=== PATIENT | female | born 1940 | race Caucasian/White ===

== ENCOUNTER → 2019-05-26 | Outpatient (CLI) | payer MEDICARE, OTHER ==
[2019-05-26 13:29] LABS: EOS # 0.1 (0.04-0.40); EOS % 0.8 % (1.0-5.0); HEMATOCRIT 42.7 % (37.0-47.0); HEMOGLOBIN 13.5 g/dL (12.5-16.0); LYMPH# 1.5 (1.50-4.00); MEAN CELL VOLUME 88 fl (78-100); MEAN CORPUSCULAR HEMOGLOBIN 28 pg (27-31); MEAN CORPUSCULAR HGB CONC 32 g/dL (33-37); MEAN PLATELET VOLUME 10.1 fl (7.4-10.4); PLATELET COUNT 405 K/mm3 (130-400); RED BLOOD COUNT 4.83 M/mm3 (4.10-5.30); RED CELL DISTRIBUTION WIDTH 13.7 % (11.5-14.5); WHITE BLOOD COUNT 9.6 K/mm3 (4.8-10.8)
[2019-05-26 13:39] LABS: ALBUMIN 3.8 g/dL (3.4-4.8)
[2019-05-26 13:40] LABS: POTASSIUM 4.2 mmol/L (3.5-5.1)
[2019-05-26 13:42] LABS: TOTAL PROTEIN 7.5 g/dL (6.2-8.1)
[2019-05-26 13:44] LABS: TOTAL BILIRUBIN 0.3 mg/dL (0.2-1.2)
== END ==
LOC: LAB 13:06 → RAD 13:06
PROVIDERS: Family Medicine
DX: J43.8 Other emphysema (principal); I71.2 Thoracic aortic aneurysm, without rupture; J90 Pleural effusion, not elsewhere classified; M47.814 Spondylosis without myelopathy or radiculopathy, thoracic region
CPT/HCPCS: Q9967

== ENCOUNTER 2019-05-30 11:53 | Emergency (ER) | payer MEDICARE, OTHER ==
[2019-05-30] MEDS ORDERED: FUROSEMIDE40 MG (12:04)
[2019-05-30 12:48] LABS: HEMATOCRIT 41.6 % (37.0-47.0); HEMOGLOBIN 13.4 g/dL (12.5-16.0); MEAN CELL VOLUME 87 fl (78-100); MEAN CORPUSCULAR HEMOGLOBIN 28 pg (27-31); MEAN CORPUSCULAR HGB CONC 32 g/dL (33-37); MEAN PLATELET VOLUME 10.4 fl (7.4-10.4); PLATELET COUNT 399 K/mm3 (130-400); RED CELL DISTRIBUTION WIDTH 13.6 % (11.5-14.5); WHITE BLOOD COUNT 8.6 K/mm3 (4.8-10.8)
[2019-05-30 13:02] LABS: LYMPHOCYTE 17 % (20-51); MONOCYTE 10 % (3-10); NEUTROPHILS 72 % (42-75)
[2019-05-30 13:03] LABS: ALBUMIN 3.8 g/dL (3.4-4.8)
[2019-05-30 13:04] LABS: POTASSIUM 4.6 mmol/L (3.5-5.1)
[2019-05-30 13:05] LABS: CALCIUM 8.8 mg/dL (8.3-10.5)
[2019-05-30 13:06] LABS: TOTAL PROTEIN 7.1 g/dL (6.2-8.1)
[2019-05-30 13:08] LABS: TOTAL BILIRUBIN 0.4 mg/dL (0.2-1.2)
[2019-05-30 14:20] LABS: PROTHROMBIN TIME 9.5 SECONDS (9.0-12.0)
[2019-05-30 15:03] VITALS: BP 129/74
== END 2019-05-30 14:53 | disposition short-term general hospital (02) ==
LOC: ED 11:53
PROVIDERS: Physician Assistant
DX: J90 Pleural effusion, not elsewhere classified (principal); I71.9 Aortic aneurysm of unspecified site, without rupture; R09.02 Hypoxemia; Z87.891 Personal history of nicotine dependence; Z88.2 Allergy status to sulfonamides
CPT/HCPCS: J1940

== ENCOUNTER → 2019-07-31 | Outpatient (CLI) | payer MEDICARE, OTHER ==
[~2019-07-31] MED LIST: FUROSEMIDE40 MG
[2019-07-31 11:45] LABS: CALCIUM 9.6 mg/dL (8.3-10.5)
== END ==
LOC: LAB 11:23 → RAD 11:23
PROVIDERS: Nurse Practitioner Family
DX: K59.00 Constipation, unspecified (principal); J90 Pleural effusion, not elsewhere classified; N13.30 Unspecified hydronephrosis; N28.89 Other specified disorders of kidney and ureter
CPT/HCPCS: Q9967

== ENCOUNTER → 2019-08-17 | Outpatient (CLI) | payer MEDICARE, OTHER ==
[2019-08-17 11:42] LABS: HEMATOCRIT 41.5 % (37.0-47.0); HEMOGLOBIN 13.5 g/dL (12.5-16.0); MEAN CELL VOLUME 87 fl (78-100); MEAN CORPUSCULAR HEMOGLOBIN 28 pg (27-31); MEAN CORPUSCULAR HGB CONC 33 g/dL (33-37); MEAN PLATELET VOLUME 10.8 fl (7.4-10.4); PLATELET COUNT 297 K/mm3 (130-400); RED CELL DISTRIBUTION WIDTH 14.6 % (11.5-14.5); WHITE BLOOD COUNT 14.7 K/mm3 (4.8-10.8)
[2019-08-17 12:08] LABS: LYMPHOCYTE 15 % (20-51); MONOCYTE 6 % (3-10); NEUTROPHILS 79 % (42-75)
== END ==
LOC: LAB 11:11
PROVIDERS: Internal Medicine Medical Oncology
DX: C57.8 Malignant neoplasm of overlapping sites of female genital organs (principal)

== ENCOUNTER → 2019-08-24 | Outpatient (CLI) | payer MEDICARE, OTHER ==
[2019-08-24 11:30] LABS: HEMATOCRIT 42.4 % (37.0-47.0); HEMOGLOBIN 13.6 g/dL (12.5-16.0); MEAN CELL VOLUME 87 fl (78-100); MEAN CORPUSCULAR HEMOGLOBIN 28 pg (27-31); MEAN CORPUSCULAR HGB CONC 32 g/dL (33-37); MEAN PLATELET VOLUME 10.3 fl (7.4-10.4); PLATELET COUNT 472 K/mm3 (130-400); RED BLOOD COUNT 4.86 M/mm3 (4.10-5.30); RED CELL DISTRIBUTION WIDTH 14.7 % (11.5-14.5); WHITE BLOOD COUNT 9.1 K/mm3 (4.8-10.8)
[2019-08-24 11:38] LABS: ALBUMIN 3.8 g/dL (3.4-4.8); POTASSIUM 4.2 mmol/L (3.5-5.1)
[2019-08-24 11:39] LABS: CALCIUM 8.8 mg/dL (8.3-10.5)
[2019-08-24 11:42] LABS: TOTAL BILIRUBIN 0.2 mg/dL (0.2-1.2)
[2019-08-24 12:30] LABS: LYMPHOCYTE 15 % (20-51); MONOCYTE 16 % (3-10); NEUTROPHILS 68 % (42-75)
== END ==
LOC: LAB 11:16
PROVIDERS: Internal Medicine Medical Oncology
DX: C57.8 Malignant neoplasm of overlapping sites of female genital organs (principal)

== ENCOUNTER → 2019-08-31 | Outpatient (CLI) | payer MEDICARE, OTHER ==
[2019-08-31 13:01] LABS: HEMATOCRIT 40.8 % (37.0-47.0); HEMOGLOBIN 12.9 g/dL (12.5-16.0); MEAN CELL VOLUME 89 fl (78-100); MEAN CORPUSCULAR HEMOGLOBIN 28 pg (27-31); MEAN CORPUSCULAR HGB CONC 32 g/dL (33-37); MEAN PLATELET VOLUME 11.6 fl (7.4-10.4); PLATELET COUNT 303 K/mm3 (130-400); RED BLOOD COUNT 4.61 M/mm3 (4.10-5.30); RED CELL DISTRIBUTION WIDTH 15.4 % (11.5-14.5)
[2019-08-31 13:48] LABS: WHITE BLOOD COUNT 26.9 K/mm3 (4.8-10.8)
[2019-08-31 13:54] LABS: LYMPHOCYTE 7 % (20-51); MONOCYTE 6 % (3-10); NEUTROPHILS 80 % (42-75)
[2019-08-31 13:55] LABS: BAND 3 % (0-10)
== END ==
LOC: LAB 11:53
PROVIDERS: Internal Medicine Medical Oncology
DX: C57.8 Malignant neoplasm of overlapping sites of female genital organs (principal)

== ENCOUNTER → 2019-09-07 | Outpatient (CLI) | payer MEDICARE, OTHER ==
[2019-09-07 11:15] LABS: EOS # 0.1 (0.04-0.40); EOS % 0.7 % (1.0-5.0); HEMATOCRIT 43.5 % (37.0-47.0); HEMOGLOBIN 13.6 g/dL (12.5-16.0); LYMPH# 1.6 (1.50-4.00); MEAN CELL VOLUME 88 fl (78-100); MEAN CORPUSCULAR HEMOGLOBIN 28 pg (27-31); MEAN CORPUSCULAR HGB CONC 31 g/dL (33-37); MEAN PLATELET VOLUME 10.7 fl (7.4-10.4); MONO # 1.2 (0.20-0.80); NEU # 8.5 (1.40-6.50); PLATELET COUNT 273 K/mm3 (130-400); RED BLOOD COUNT 4.92 M/mm3 (4.10-5.30); RED CELL DISTRIBUTION WIDTH 15.8 % (11.5-14.5); WHITE BLOOD COUNT 11.5 K/mm3 (4.8-10.8)
== END ==
LOC: LAB 11:02
PROVIDERS: Internal Medicine Medical Oncology
DX: C57.8 Malignant neoplasm of overlapping sites of female genital organs (principal)

== ENCOUNTER → 2019-09-14 | Outpatient (CLI) | payer MEDICARE, OTHER ==
[2019-09-14 11:54] LABS: HEMATOCRIT 40.9 % (37.0-47.0); HEMOGLOBIN 12.9 g/dL (12.5-16.0); MEAN CELL VOLUME 89 fl (78-100); MEAN CORPUSCULAR HEMOGLOBIN 28 pg (27-31); MEAN CORPUSCULAR HGB CONC 32 g/dL (33-37); MEAN PLATELET VOLUME 10.6 fl (7.4-10.4); PLATELET COUNT 332 K/mm3 (130-400); RED BLOOD COUNT 4.61 M/mm3 (4.10-5.30); RED CELL DISTRIBUTION WIDTH 15.8 % (11.5-14.5); WHITE BLOOD COUNT 7.6 K/mm3 (4.8-10.8)
[2019-09-14 12:06] LABS: ALBUMIN 3.7 g/dL (3.4-4.8); POTASSIUM 4.2 mmol/L (3.5-5.1)
[2019-09-14 12:07] LABS: CALCIUM 9.1 mg/dL (8.3-10.5)
[2019-09-14 12:08] LABS: TOTAL PROTEIN 7.2 g/dL (6.2-8.1)
[2019-09-14 12:10] LABS: TOTAL BILIRUBIN 0.5 mg/dL (0.2-1.2)
[2019-09-14 12:27] LABS: BAND 1 % (0-10); LYMPHOCYTE 18 % (20-51); MONOCYTE 12 % (3-10); NEUTROPHILS 68 % (42-75)
== END ==
LOC: LAB 11:29
PROVIDERS: Internal Medicine Medical Oncology
DX: C57.8 Malignant neoplasm of overlapping sites of female genital organs (principal)

== ENCOUNTER → 2019-09-21 | Outpatient (CLI) | payer MEDICARE, OTHER ==
[2019-09-21 13:48] LABS: HEMATOCRIT 39.5 % (37.0-47.0); HEMOGLOBIN 12.3 g/dL (12.5-16.0); MEAN CELL VOLUME 91 fl (78-100); MEAN CORPUSCULAR HEMOGLOBIN 28 pg (27-31); MEAN CORPUSCULAR HGB CONC 31 g/dL (33-37); MEAN PLATELET VOLUME 11.3 fl (7.4-10.4); PLATELET COUNT 240 K/mm3 (130-400); RED BLOOD COUNT 4.36 M/mm3 (4.10-5.30); RED CELL DISTRIBUTION WIDTH 16.6 % (11.5-14.5)
[2019-09-21 13:53] LABS: WHITE BLOOD COUNT 24.9 K/mm3 (4.8-10.8)
[2019-09-21 13:59] LABS: LYMPHOCYTE 9 % (20-51); MONOCYTE 8 % (3-10); NEUTROPHILS 83 % (42-75)
== END ==
LOC: LAB 13:32
PROVIDERS: Internal Medicine Medical Oncology
DX: C57.8 Malignant neoplasm of overlapping sites of female genital organs (principal)

== ENCOUNTER → 2019-09-28 | Outpatient (CLI) | payer MEDICARE, OTHER ==
[2019-09-28 15:48] LABS: EOS # 0.1 (0.04-0.40); EOS % 0.4 % (1.0-5.0); HEMATOCRIT 40.7 % (37.0-47.0); HEMOGLOBIN 12.8 g/dL (12.5-16.0); LYMPH# 1.8 (1.50-4.00); MEAN CELL VOLUME 90 fl (78-100); MEAN CORPUSCULAR HEMOGLOBIN 28 pg (27-31); MEAN CORPUSCULAR HGB CONC 31 g/dL (33-37); MEAN PLATELET VOLUME 10.6 fl (7.4-10.4); MONO # 1.1 (0.20-0.80); PLATELET COUNT 258 K/mm3 (130-400); RED BLOOD COUNT 4.51 M/mm3 (4.10-5.30); RED CELL DISTRIBUTION WIDTH 16.7 % (11.5-14.5); WHITE BLOOD COUNT 14.2 K/mm3 (4.8-10.8)
[2019-09-28 16:29] LABS: NEU # 11.2 (1.40-6.50)
== END ==
LOC: LAB 15:35
PROVIDERS: Internal Medicine Medical Oncology
DX: C57.8 Malignant neoplasm of overlapping sites of female genital organs (principal)

== ENCOUNTER → 2019-09-30 | Outpatient (CLI) | payer MEDICARE, OTHER | LOC: RAD 08:15 | DX: C57.8 Malignant neoplasm of overlapping sites of female genital organs (principal) | CPT/HCPCS: Q9967 ==

== ENCOUNTER → 2019-10-19 | Outpatient (CLI) | payer MEDICARE, OTHER ==
[2019-10-19 09:41] LABS: EOS # 0.1 (0.04-0.40); EOS % 1.5 % (1.0-5.0); HEMATOCRIT 42.3 % (37.0-47.0); HEMOGLOBIN 13.3 g/dL (12.5-16.0); LYMPH# 1.5 (1.50-4.00); MEAN CELL VOLUME 93 fl (78-100); MEAN CORPUSCULAR HEMOGLOBIN 29 pg (27-31); MEAN CORPUSCULAR HGB CONC 31 g/dL (33-37); MEAN PLATELET VOLUME 10.7 fl (7.4-10.4); MONO # 0.7 (0.20-0.80); NEU # 6.5 (1.40-6.50); PLATELET COUNT 235 K/mm3 (130-400); RED BLOOD COUNT 4.53 M/mm3 (4.10-5.30); WHITE BLOOD COUNT 8.9 K/mm3 (4.8-10.8)
[2019-10-19 09:54] LABS: RED CELL DISTRIBUTION WIDTH 18.2 % (11.5-14.5)
[2019-10-19 10:01] LABS: ALBUMIN 3.8 g/dL (3.4-4.8)
[2019-10-19 10:02] LABS: CALCIUM 9.1 mg/dL (8.3-10.5)
[2019-10-19 10:03] LABS: TOTAL PROTEIN 7.3 g/dL (6.2-8.1)
[2019-10-19 10:05] LABS: TOTAL BILIRUBIN 0.3 mg/dL (0.2-1.2)
== END ==
LOC: LAB 09:21
PROVIDERS: Internal Medicine Medical Oncology
DX: C57.8 Malignant neoplasm of overlapping sites of female genital organs (principal)

== ENCOUNTER → 2019-10-26 | Outpatient (CLI) | payer MEDICARE, OTHER ==
[2019-10-26 10:42] LABS: ALBUMIN 3.7 g/dL (3.4-4.8); POTASSIUM 3.7 mmol/L (3.5-5.1)
[2019-10-26 10:43] LABS: CALCIUM 8.8 mg/dL (8.3-10.5)
[2019-10-26 10:44] LABS: TOTAL PROTEIN 7.1 g/dL (6.2-8.1)
[2019-10-26 10:46] LABS: TOTAL BILIRUBIN 0.5 mg/dL (0.2-1.2)
[2019-10-26 10:55] LABS: HEMATOCRIT 41.9 % (37.0-47.0); MEAN CELL VOLUME 95 fl (78-100); MEAN CORPUSCULAR HEMOGLOBIN 29 pg (27-31); MEAN CORPUSCULAR HGB CONC 31 g/dL (33-37); PLATELET COUNT 271 K/mm3 (130-400); RED BLOOD COUNT 4.42 M/mm3 (4.10-5.30); RED CELL DISTRIBUTION WIDTH 17.6 % (11.5-14.5); WHITE BLOOD COUNT 5.9 K/mm3 (4.8-10.8)
[2019-10-26 11:50] LABS: LYMPHOCYTE 19 % (20-51); MONOCYTE 10 % (3-10); NEUTROPHILS 69 % (42-75)
== END ==
LOC: LAB 09:42
PROVIDERS: Internal Medicine Medical Oncology
DX: C57.8 Malignant neoplasm of overlapping sites of female genital organs (principal)

== ENCOUNTER → 2019-11-02 | Outpatient (CLI) | payer MEDICARE, OTHER ==
[2019-11-02 13:51] LABS: HEMATOCRIT 38.3 % (37.0-47.0); HEMOGLOBIN 12.2 g/dL (12.5-16.0); MEAN CELL VOLUME 95 fl (78-100); MEAN CORPUSCULAR HEMOGLOBIN 30 pg (27-31); MEAN CORPUSCULAR HGB CONC 32 g/dL (33-37); MEAN PLATELET VOLUME 11.3 fl (7.4-10.4); PLATELET COUNT 189 K/mm3 (130-400); RED BLOOD COUNT 4.02 M/mm3 (4.10-5.30); RED CELL DISTRIBUTION WIDTH 17.4 % (11.5-14.5)
[2019-11-02 14:30] LABS: WHITE BLOOD COUNT 21.7 K/mm3 (4.8-10.8)
[2019-11-02 14:31] LABS: BAND 5 % (0-10); LYMPHOCYTE 8 % (20-51); MICROCYTOSIS 1+; MONOCYTE 3 % (3-10); NEUTROPHILS 83 % (42-75)
== END ==
LOC: LAB 13:24
PROVIDERS: Internal Medicine Medical Oncology
DX: C57.8 Malignant neoplasm of overlapping sites of female genital organs (principal)

== ENCOUNTER → 2019-11-09 | Outpatient (CLI) | payer MEDICARE, OTHER ==
[2019-11-09 15:34] LABS: HEMATOCRIT 40.9 % (37.0-47.0); HEMOGLOBIN 12.9 g/dL (12.5-16.0); MEAN CELL VOLUME 95 fl (78-100); MEAN CORPUSCULAR HEMOGLOBIN 30 pg (27-31); MEAN CORPUSCULAR HGB CONC 32 g/dL (33-37); MEAN PLATELET VOLUME 10.9 fl (7.4-10.4); PLATELET COUNT 233 K/mm3 (130-400); RED BLOOD COUNT 4.31 M/mm3 (4.10-5.30); RED CELL DISTRIBUTION WIDTH 16.8 % (11.5-14.5); WHITE BLOOD COUNT 13.8 K/mm3 (4.8-10.8)
[2019-11-09 16:02] LABS: LYMPHOCYTE 12 % (20-51); MONOCYTE 5 % (3-10); NEUTROPHILS 81 % (42-75)
== END ==
LOC: LAB 15:04
PROVIDERS: Internal Medicine Medical Oncology
DX: C57.8 Malignant neoplasm of overlapping sites of female genital organs (principal)

== ENCOUNTER → 2019-11-16 | Outpatient (CLI) | payer MEDICARE, OTHER ==
[2019-11-16 15:37] LABS: HEMATOCRIT 39.5 % (37.0-47.0); HEMOGLOBIN 12.4 g/dL (12.5-16.0); MEAN CELL VOLUME 96 fl (78-100); MEAN CORPUSCULAR HEMOGLOBIN 30 pg (27-31); MEAN CORPUSCULAR HGB CONC 31 g/dL (33-37); MEAN PLATELET VOLUME 11.4 fl (7.4-10.4); PLATELET COUNT 305 K/mm3 (130-400); RED BLOOD COUNT 4.11 M/mm3 (4.10-5.30); WHITE BLOOD COUNT 7.3 K/mm3 (4.8-10.8)
[2019-11-16 15:40] LABS: ALBUMIN 3.8 g/dL (3.4-4.8); POTASSIUM 3.9 mmol/L (3.5-5.1)
[2019-11-16 15:41] LABS: CALCIUM 8.7 mg/dL (8.3-10.5)
[2019-11-16 15:42] LABS: TOTAL PROTEIN 7.2 g/dL (6.2-8.1)
[2019-11-16 15:44] LABS: TOTAL BILIRUBIN 0.3 mg/dL (0.2-1.2)
[2019-11-16 16:05] LABS: LYMPHOCYTE 24 % (20-51); MONOCYTE 12 % (3-10); NEUTROPHILS 62 % (42-75)
== END ==
LOC: LAB 14:06
PROVIDERS: Internal Medicine Medical Oncology
DX: C57.8 Malignant neoplasm of overlapping sites of female genital organs (principal)

== ENCOUNTER → 2019-12-01 | Outpatient (CLI) | payer MEDICARE, OTHER ==
[2019-12-01 09:22] LABS: EOS # 0.1 (0.04-0.40); EOS % 1.1 % (1.0-5.0); HEMATOCRIT 42.7 % (37.0-47.0); HEMOGLOBIN 13.6 g/dL (12.5-16.0); LYMPH# 1.5 (1.50-4.00); MEAN CELL VOLUME 96 fl (78-100); MEAN CORPUSCULAR HEMOGLOBIN 31 pg (27-31); MEAN CORPUSCULAR HGB CONC 32 g/dL (33-37); MEAN PLATELET VOLUME 10.5 fl (7.4-10.4); MONO # 0.8 (0.20-0.80); NEU # 8.1 (1.40-6.50); PLATELET COUNT 231 K/mm3 (130-400); RED BLOOD COUNT 4.43 M/mm3 (4.10-5.30); RED CELL DISTRIBUTION WIDTH 15.9 % (11.5-14.5); WHITE BLOOD COUNT 10.5 K/mm3 (4.8-10.8)
[2019-12-01 09:44] LABS: ALBUMIN 3.9 g/dL (3.4-4.8); POTASSIUM 4.2 mmol/L (3.5-5.1)
[2019-12-01 09:46] LABS: CALCIUM 8.9 mg/dL (8.3-10.5)
[2019-12-01 09:47] LABS: TOTAL PROTEIN 7.3 g/dL (6.2-8.1)
[2019-12-01 09:49] LABS: TOTAL BILIRUBIN 0.3 mg/dL (0.2-1.2)
== END ==
LOC: RAD 09:00
PROVIDERS: Internal Medicine
DX: C57.8 Malignant neoplasm of overlapping sites of female genital organs (principal); J43.9 Emphysema, unspecified; K76.89 Other specified diseases of liver
CPT/HCPCS: Q9967

== ENCOUNTER → 2019-12-25 | Outpatient (CLI) | payer MEDICARE, OTHER ==
[2019-12-25 11:05] LABS: HEMATOCRIT 41.9 % (37.0-47.0); HEMOGLOBIN 13.2 g/dL (12.5-16.0); MEAN CELL VOLUME 98 fl (78-100); MEAN CORPUSCULAR HEMOGLOBIN 31 pg (27-31); MEAN CORPUSCULAR HGB CONC 32 g/dL (33-37); MEAN PLATELET VOLUME 10.9 fl (7.4-10.4); PLATELET COUNT 207 K/mm3 (130-400); RED BLOOD COUNT 4.28 M/mm3 (4.10-5.30); RED CELL DISTRIBUTION WIDTH 14.6 % (11.5-14.5); WHITE BLOOD COUNT 14.1 K/mm3 (4.8-10.8)
[2019-12-25 11:32] LABS: ALBUMIN 3.9 g/dL (3.4-4.8)
[2019-12-25 11:33] LABS: POTASSIUM 4.2 mmol/L (3.5-5.1)
[2019-12-25 11:34] LABS: CALCIUM 9.2 mg/dL (8.3-10.5)
[2019-12-25 11:35] LABS: TOTAL PROTEIN 7.3 g/dL (6.2-8.1)
[2019-12-25 11:37] LABS: TOTAL BILIRUBIN 0.2 mg/dL (0.2-1.2)
[2019-12-25 11:46] LABS: LYMPHOCYTE 17 % (20-51); MONOCYTE 10 % (3-10); NEUTROPHILS 73 % (42-75)
== END ==
LOC: LAB 10:48
PROVIDERS: Internal Medicine Medical Oncology
DX: C57.8 Malignant neoplasm of overlapping sites of female genital organs (principal)

== ENCOUNTER → 2020-01-01 | Outpatient (CLI) | payer MEDICARE, OTHER ==
[2020-01-01 13:43] LABS: HEMATOCRIT 41.1 % (37.0-47.0); MEAN CELL VOLUME 97 fl (78-100); MEAN CORPUSCULAR HEMOGLOBIN 31 pg (27-31); MEAN CORPUSCULAR HGB CONC 32 g/dL (33-37); MEAN PLATELET VOLUME 10.5 fl (7.4-10.4); PLATELET COUNT 250 K/mm3 (130-400); RED BLOOD COUNT 4.23 M/mm3 (4.10-5.30); WHITE BLOOD COUNT 8.7 K/mm3 (4.8-10.8)
[2020-01-01 13:52] LABS: ALBUMIN 3.9 g/dL (3.4-4.8)
[2020-01-01 13:53] LABS: POTASSIUM 4.4 mmol/L (3.5-5.1)
[2020-01-01 13:54] LABS: CALCIUM 9.1 mg/dL (8.3-10.5)
[2020-01-01 13:55] LABS: TOTAL PROTEIN 7.4 g/dL (6.2-8.1)
[2020-01-01 13:57] LABS: TOTAL BILIRUBIN 0.3 mg/dL (0.2-1.2)
[2020-01-01 14:21] LABS: LYMPHOCYTE 26 % (20-51); MONOCYTE 5 % (3-10); NEUTROPHILS 66 % (42-75)
== END ==
LOC: LAB 13:29
PROVIDERS: Internal Medicine Medical Oncology
DX: C57.8 Malignant neoplasm of overlapping sites of female genital organs (principal)

== ENCOUNTER → 2020-01-20 | Outpatient (CLI) | payer MEDICARE, OTHER ==
[2020-01-20 10:41] LABS: EOS # 0.1 (0.04-0.40); EOS % 0.6 % (1.0-5.0); HEMATOCRIT 43.8 % (37.0-47.0); HEMOGLOBIN 13.8 g/dL (12.5-16.0); LYMPH# 1.5 (1.50-4.00); MEAN CELL VOLUME 97 fl (78-100); MEAN CORPUSCULAR HEMOGLOBIN 31 pg (27-31); MEAN CORPUSCULAR HGB CONC 32 g/dL (33-37); MEAN PLATELET VOLUME 10.7 fl (7.4-10.4); MONO # 1.1 (0.20-0.80); NEU # 8.3 (1.40-6.50); PLATELET COUNT 240 K/mm3 (130-400); RED BLOOD COUNT 4.53 M/mm3 (4.10-5.30); RED CELL DISTRIBUTION WIDTH 14.8 % (11.5-14.5); WHITE BLOOD COUNT 10.9 K/mm3 (4.8-10.8)
[2020-01-20 10:49] LABS: ALBUMIN 3.9 g/dL (3.4-4.8); POTASSIUM 4.1 mmol/L (3.5-5.1)
[2020-01-20 10:52] LABS: TOTAL PROTEIN 7.8 g/dL (6.2-8.1)
[2020-01-20 10:53] LABS: TOTAL BILIRUBIN 0.5 mg/dL (0.2-1.2)
== END ==
LOC: LAB 10:17
PROVIDERS: Internal Medicine Medical Oncology
DX: C57.8 Malignant neoplasm of overlapping sites of female genital organs (principal)

== ENCOUNTER → 2020-01-27 | Outpatient (CLI) | payer MEDICARE, OTHER ==
[2020-01-27 10:11] LABS: HEMATOCRIT 42.5 % (37.0-47.0); HEMOGLOBIN 13.4 g/dL (12.5-16.0); MEAN CELL VOLUME 97 fl (78-100); MEAN CORPUSCULAR HEMOGLOBIN 31 pg (27-31); MEAN CORPUSCULAR HGB CONC 32 g/dL (33-37); MEAN PLATELET VOLUME 10.6 fl (7.4-10.4); PLATELET COUNT 309 K/mm3 (130-400); RED BLOOD COUNT 4.38 M/mm3 (4.10-5.30); RED CELL DISTRIBUTION WIDTH 14.5 % (11.5-14.5); WHITE BLOOD COUNT 6.6 K/mm3 (4.8-10.8)
[2020-01-27 11:58] LABS: LYMPHOCYTE 24 % (20-51); MONOCYTE 13 % (3-10); NEUTROPHILS 62 % (42-75)
== END ==
LOC: LAB 09:39
PROVIDERS: Internal Medicine Medical Oncology
DX: C57.8 Malignant neoplasm of overlapping sites of female genital organs (principal)

== ENCOUNTER → 2020-02-12 | Outpatient (CLI) | payer MEDICARE, OTHER ==
[2020-02-12 11:16] LABS: HEMOGLOBIN 13.5 g/dL (12.5-16.0); MEAN CELL VOLUME 96 fl (78-100); MEAN CORPUSCULAR HEMOGLOBIN 30 pg (27-31); MEAN CORPUSCULAR HGB CONC 31 g/dL (33-37); MEAN PLATELET VOLUME 10.4 fl (7.4-10.4); PLATELET COUNT 259 K/mm3 (130-400); RED BLOOD COUNT 4.46 M/mm3 (4.10-5.30); RED CELL DISTRIBUTION WIDTH 14.2 % (11.5-14.5); WHITE BLOOD COUNT 5.9 K/mm3 (4.8-10.8)
[2020-02-12 11:29] LABS: ALBUMIN 3.9 g/dL (3.4-4.8)
[2020-02-12 11:30] LABS: POTASSIUM 4.2 mmol/L (3.5-5.1)
[2020-02-12 11:31] LABS: CALCIUM 8.9 mg/dL (8.3-10.5)
[2020-02-12 11:32] LABS: TOTAL PROTEIN 7.6 g/dL (6.2-8.1)
[2020-02-12 11:34] LABS: TOTAL BILIRUBIN 0.5 mg/dL (0.2-1.2)
[2020-02-12 12:08] LABS: LYMPHOCYTE 23 % (20-51); MONOCYTE 12 % (3-10); NEUTROPHILS 63 % (42-75)
== END ==
LOC: LAB 11:01
PROVIDERS: Internal Medicine Medical Oncology
DX: C57.8 Malignant neoplasm of overlapping sites of female genital organs (principal)

== ENCOUNTER → 2020-02-18 | Outpatient (CLI) | payer MEDICARE, OTHER ==
[2020-02-18 14:37] LABS: EOS # 0.3 (0.04-0.40); EOS % 4.3 % (1.0-5.0); HEMATOCRIT 42.5 % (37.0-47.0); HEMOGLOBIN 13.7 g/dL (12.5-16.0); LYMPH# 1.7 (1.50-4.00); MEAN CELL VOLUME 96 fl (78-100); MEAN CORPUSCULAR HEMOGLOBIN 31 pg (27-31); MEAN CORPUSCULAR HGB CONC 32 g/dL (33-37); MEAN PLATELET VOLUME 10.8 fl (7.4-10.4); MONO # 0.9 (0.20-0.80); NEU # 4.3 (1.40-6.50); PLATELET COUNT 237 K/mm3 (130-400); RED BLOOD COUNT 4.41 M/mm3 (4.10-5.30); RED CELL DISTRIBUTION WIDTH 13.9 % (11.5-14.5); WHITE BLOOD COUNT 7.3 K/mm3 (4.8-10.8)
== END ==
LOC: LAB 14:06
PROVIDERS: Internal Medicine Medical Oncology
DX: C57.8 Malignant neoplasm of overlapping sites of female genital organs (principal)

== ENCOUNTER → 2020-03-09 | Outpatient (CLI) | payer MEDICARE, OTHER ==
[2020-03-09 11:18] LABS: HEMATOCRIT 45.4 % (37.0-47.0); HEMOGLOBIN 14.5 g/dL (12.5-16.0); MEAN CELL VOLUME 94 fl (78-100); MEAN CORPUSCULAR HEMOGLOBIN 30 pg (27-31); MEAN CORPUSCULAR HGB CONC 32 g/dL (33-37); MEAN PLATELET VOLUME 10.2 fl (7.4-10.4); PLATELET COUNT 272 K/mm3 (130-400); RED BLOOD COUNT 4.81 M/mm3 (4.10-5.30); RED CELL DISTRIBUTION WIDTH 13.7 % (11.5-14.5)
[2020-03-09 11:35] LABS: POTASSIUM 4.2 mmol/L (3.5-5.1)
[2020-03-09 11:36] LABS: CALCIUM 9.2 mg/dL (8.3-10.5)
[2020-03-09 11:38] LABS: TOTAL PROTEIN 7.7 g/dL (6.2-8.1)
[2020-03-09 11:39] LABS: TOTAL BILIRUBIN 0.5 mg/dL (0.2-1.2)
[2020-03-09 11:54] LABS: LYMPHOCYTE 27 % (20-51); MONOCYTE 14 % (3-10); NEUTROPHILS 55 % (42-75)
== END ==
LOC: LAB 11:02
PROVIDERS: Internal Medicine Medical Oncology
DX: C57.8 Malignant neoplasm of overlapping sites of female genital organs (principal)

== ENCOUNTER → 2020-03-30 | Outpatient (CLI) | payer MEDICARE, OTHER ==
[2020-03-30 14:03] LABS: HEMATOCRIT 46.2 % (37.0-47.0); HEMOGLOBIN 14.8 g/dL (12.5-16.0); MEAN CELL VOLUME 94 fl (78-100); MEAN CORPUSCULAR HEMOGLOBIN 30 pg (27-31); MEAN CORPUSCULAR HGB CONC 32 g/dL (33-37); MEAN PLATELET VOLUME 10.9 fl (7.4-10.4); PLATELET COUNT 222 K/mm3 (130-400); RED BLOOD COUNT 4.94 M/mm3 (4.10-5.30); RED CELL DISTRIBUTION WIDTH 13.5 % (11.5-14.5); WHITE BLOOD COUNT 6.2 K/mm3 (4.8-10.8)
[2020-03-30 14:04] LABS: LYMPHOCYTE 28 % (20-51); MONOCYTE 11 % (3-10); NEUTROPHILS 55 % (42-75)
[2020-03-30 14:05] LABS: ALBUMIN 3.9 g/dL (3.4-4.8); CALCIUM 9.2 mg/dL (8.3-10.5); POTASSIUM 4.4 mmol/L (3.5-5.1); TOTAL BILIRUBIN 0.3 mg/dL (0.2-1.2); TOTAL PROTEIN 7.5 g/dL (6.2-8.1)
== END ==
LOC: LAB 13:30
PROVIDERS: Internal Medicine Medical Oncology
DX: C57.8 Malignant neoplasm of overlapping sites of female genital organs (principal)

== ENCOUNTER → 2020-04-20 | Outpatient (CLI) | payer MEDICARE, OTHER ==
[2020-04-20 11:33] LABS: BASO # 0.1 (0.02-0.10); EOS # 0.2 (0.04-0.40); EOS % 2.3 % (1.0-5.0); HEMATOCRIT 45.5 % (37.0-47.0); HEMOGLOBIN 14.4 g/dL (12.5-16.0); LYMPH# 1.9 (1.50-4.00); MEAN CELL VOLUME 94 fl (78-100); MEAN CORPUSCULAR HEMOGLOBIN 30 pg (27-31); MEAN CORPUSCULAR HGB CONC 32 g/dL (33-37); MEAN PLATELET VOLUME 10.8 fl (7.4-10.4); MONO # 0.8 (0.20-0.80); NEU # 4.5 (1.40-6.50); PLATELET COUNT 227 K/mm3 (130-400); RED BLOOD COUNT 4.86 M/mm3 (4.10-5.30); RED CELL DISTRIBUTION WIDTH 13.7 % (11.5-14.5); WHITE BLOOD COUNT 7.5 K/mm3 (4.8-10.8)
[2020-04-20 11:40] LABS: ALBUMIN 3.8 g/dL (3.4-4.8)
[2020-04-20 11:41] LABS: POTASSIUM 4.2 mmol/L (3.5-5.1)
[2020-04-20 11:43] LABS: TOTAL PROTEIN 7.2 g/dL (6.2-8.1)
[2020-04-20 11:45] LABS: TOTAL BILIRUBIN 0.3 mg/dL (0.2-1.2)
== END ==
LOC: LAB 11:10
PROVIDERS: Internal Medicine Medical Oncology
DX: C57.8 Malignant neoplasm of overlapping sites of female genital organs (principal)

== ENCOUNTER → 2020-05-11 | Outpatient (CLI) | payer MEDICARE, OTHER ==
[2020-05-11 11:51] LABS: HEMATOCRIT 48.9 % (37.0-47.0); HEMOGLOBIN 15.5 g/dL (12.5-16.0); MEAN CELL VOLUME 94 fl (78-100); MEAN CORPUSCULAR HEMOGLOBIN 30 pg (27-31); MEAN CORPUSCULAR HGB CONC 32 g/dL (33-37); MEAN PLATELET VOLUME 10.7 fl (7.4-10.4); PLATELET COUNT 212 K/mm3 (130-400); RED BLOOD COUNT 5.23 M/mm3 (4.10-5.30); WHITE BLOOD COUNT 5.9 K/mm3 (4.8-10.8)
[2020-05-11 12:06] LABS: POTASSIUM 4.2 mmol/L (3.5-5.1)
[2020-05-11 12:07] LABS: CALCIUM 9.3 mg/dL (8.3-10.5)
[2020-05-11 12:08] LABS: TOTAL PROTEIN 7.9 g/dL (6.2-8.1)
[2020-05-11 12:10] LABS: TOTAL BILIRUBIN 0.5 mg/dL (0.2-1.2)
[2020-05-11 12:17] LABS: LYMPHOCYTE 34 % (20-51); MONOCYTE 14 % (3-10); NEUTROPHILS 50 % (42-75)
== END ==
LOC: LAB 11:28
PROVIDERS: Internal Medicine Medical Oncology
DX: C57.8 Malignant neoplasm of overlapping sites of female genital organs (principal)

== ENCOUNTER → 2020-06-01 | Outpatient (CLI) | payer MEDICARE, OTHER ==
[2020-06-01 11:24] LABS: ALBUMIN 3.8 g/dL (3.4-4.8); POTASSIUM 4.3 mmol/L (3.5-5.1)
[2020-06-01 11:26] LABS: TOTAL PROTEIN 7.4 g/dL (6.2-8.1)
[2020-06-01 11:28] LABS: TOTAL BILIRUBIN 0.4 mg/dL (0.2-1.2)
[2020-06-01 11:38] LABS: EOS # 0.2 (0.04-0.40); HEMATOCRIT 45.4 % (37.0-47.0); HEMOGLOBIN 14.5 g/dL (12.5-16.0); LYMPH# 1.5 (1.50-4.00); MEAN CELL VOLUME 91 fl (78-100); MEAN CORPUSCULAR HEMOGLOBIN 29 pg (27-31); MEAN CORPUSCULAR HGB CONC 32 g/dL (33-37); MEAN PLATELET VOLUME 11.3 fl (7.4-10.4); MONO # 0.6 (0.20-0.80); NEU # 3.4 (1.40-6.50); PLATELET COUNT 251 K/mm3 (130-400); RED BLOOD COUNT 4.97 M/mm3 (4.10-5.30); WHITE BLOOD COUNT 5.7 K/mm3 (4.8-10.8)
== END ==
LOC: LAB 10:38
PROVIDERS: Internal Medicine Medical Oncology
DX: C57.8 Malignant neoplasm of overlapping sites of female genital organs (principal)

== ENCOUNTER → 2020-06-22 | Outpatient (CLI) | payer MEDICARE, OTHER ==
[2020-06-22 11:29] LABS: HEMOGLOBIN 14.8 g/dL (12.5-16.0); MEAN CELL VOLUME 93 fl (78-100); MEAN CORPUSCULAR HEMOGLOBIN 29 pg (27-31); MEAN CORPUSCULAR HGB CONC 32 g/dL (33-37); MEAN PLATELET VOLUME 10.8 fl (7.4-10.4); PLATELET COUNT 223 K/mm3 (130-400); RED BLOOD COUNT 5.05 M/mm3 (4.10-5.30); RED CELL DISTRIBUTION WIDTH 14.6 % (11.5-14.5); WHITE BLOOD COUNT 5.6 K/mm3 (4.8-10.8)
[2020-06-22 11:33] LABS: ALBUMIN 3.9 g/dL (3.4-4.8)
[2020-06-22 11:34] LABS: CALCIUM 9.2 mg/dL (8.3-10.5)
[2020-06-22 11:36] LABS: TOTAL PROTEIN 7.4 g/dL (6.2-8.1)
[2020-06-22 11:37] LABS: TOTAL BILIRUBIN 0.4 mg/dL (0.2-1.2)
[2020-06-22 11:39] LABS: LYMPHOCYTE 26 % (20-51); MONOCYTE 13 % (3-10); NEUTROPHILS 57 % (42-75)
== END ==
LOC: LAB 11:05
PROVIDERS: Internal Medicine Medical Oncology
DX: C57.8 Malignant neoplasm of overlapping sites of female genital organs (principal)

== ENCOUNTER → 2020-07-19 | Outpatient (CLI) | payer MEDICARE, OTHER ==
[2020-07-19 15:39] LABS: BASO # 0.1 (0.02-0.10); EOS # 0.2 (0.04-0.40); EOS % 2.3 % (1.0-5.0); HEMATOCRIT 46.6 % (37.0-47.0); HEMOGLOBIN 14.7 g/dL (12.5-16.0); LYMPH# 2.3 (1.50-4.00); MEAN CELL VOLUME 95 fl (78-100); MEAN CORPUSCULAR HEMOGLOBIN 30 pg (27-31); MEAN CORPUSCULAR HGB CONC 32 g/dL (33-37); MEAN PLATELET VOLUME 10.8 fl (7.4-10.4); MONO # 0.9 (0.20-0.80); NEU # 3.9 (1.40-6.50); PLATELET COUNT 248 K/mm3 (130-400); RED BLOOD COUNT 4.89 M/mm3 (4.10-5.30); RED CELL DISTRIBUTION WIDTH 14.7 % (11.5-14.5); WHITE BLOOD COUNT 7.3 K/mm3 (4.8-10.8)
[2020-07-19 15:48] LABS: POTASSIUM 4.4 mmol/L (3.5-5.1)
[2020-07-19 15:50] LABS: TOTAL PROTEIN 7.6 g/dL (6.2-8.1)
[2020-07-19 15:52] LABS: TOTAL BILIRUBIN 0.5 mg/dL (0.2-1.2)
[2020-07-19 16:00] LABS: URINE APPEARANCE CLEAR; URINE BILIRUBIN NEGATIVE (NEGATIVE); URINE BLOOD NEGATIVE (NEGATIVE); URINE COLOR YELLOW; URINE GLUCOSE NEGATIVE (NEGATIVE); URINE KETONE NEGATIVE (NEGATIVE); URINE LEUKOCYTE ESTERASE TRACE (NEGATIVE); URINE NITRATE NEGATIVE (NEGATIVE); URINE PROTEIN(semi-quant) TRACE mg/dL (NEGATIVE); URINE UROBILINOGEN NORMAL (NORMAL)
[2020-07-19 16:01] LABS: URINE MUCUS PRESENT (NOT PRESENT)
== END ==
LOC: LAB 15:25
PROVIDERS: Internal Medicine Medical Oncology
DX: C57.8 Malignant neoplasm of overlapping sites of female genital organs (principal)

== ENCOUNTER → 2020-08-05 | Outpatient (CLI) | payer MEDICARE, OTHER ==
[2020-08-05 11:43] LABS: BASO # 0.1 (0.02-0.10); EOS # 0.1 (0.04-0.40); EOS % 2.3 % (1.0-5.0); HEMATOCRIT 48.7 % (37.0-47.0); HEMOGLOBIN 15.3 g/dL (12.5-16.0); LYMPH# 1.6 (1.50-4.00); MEAN CELL VOLUME 95 fl (78-100); MEAN CORPUSCULAR HEMOGLOBIN 30 pg (27-31); MEAN CORPUSCULAR HGB CONC 31 g/dL (33-37); MONO # 0.7 (0.20-0.80); NEU # 3.6 (1.40-6.50); PLATELET COUNT 236 K/mm3 (130-400); RED BLOOD COUNT 5.11 M/mm3 (4.10-5.30); RED CELL DISTRIBUTION WIDTH 14.6 % (11.5-14.5); WHITE BLOOD COUNT 6.1 K/mm3 (4.8-10.8)
[2020-08-05 11:47] LABS: ALBUMIN 3.9 g/dL (3.4-4.8); POTASSIUM 4.3 mmol/L (3.5-5.1)
[2020-08-05 11:48] LABS: CALCIUM 8.9 mg/dL (8.3-10.5)
[2020-08-05 11:49] LABS: TOTAL PROTEIN 7.1 g/dL (6.2-8.1)
[2020-08-05 11:51] LABS: TOTAL BILIRUBIN 0.5 mg/dL (0.2-1.2)
== END ==
LOC: LAB 11:20
PROVIDERS: Internal Medicine Medical Oncology
DX: C57.8 Malignant neoplasm of overlapping sites of female genital organs (principal)

== ENCOUNTER → 2020-08-24 | Outpatient (CLI) | payer MEDICARE, OTHER ==
[2020-08-24 14:47] LABS: HEMOGLOBIN 14.7 g/dL (12.5-16.0); MEAN CELL VOLUME 95 fl (78-100); MEAN CORPUSCULAR HEMOGLOBIN 30 pg (27-31); MEAN CORPUSCULAR HGB CONC 32 g/dL (33-37); MEAN PLATELET VOLUME 11.1 fl (7.4-10.4); PLATELET COUNT 231 K/mm3 (130-400); RED BLOOD COUNT 4.87 M/mm3 (4.10-5.30); RED CELL DISTRIBUTION WIDTH 14.1 % (11.5-14.5); WHITE BLOOD COUNT 6.5 K/mm3 (4.8-10.8)
[2020-08-24 14:48] LABS: ALBUMIN 3.8 g/dL (3.4-4.8); POTASSIUM 4.1 mmol/L (3.5-5.1)
[2020-08-24 14:50] LABS: CALCIUM 8.9 mg/dL (8.3-10.5)
[2020-08-24 14:53] LABS: TOTAL BILIRUBIN 0.4 mg/dL (0.2-1.2)
[2020-08-24 15:00] LABS: BAND 1 % (0-10); LYMPHOCYTE 27 % (20-51); MONOCYTE 14 % (3-10); NEUTROPHILS 55 % (42-75)
== END ==
LOC: LAB 14:22
PROVIDERS: Internal Medicine Medical Oncology
DX: C57.8 Malignant neoplasm of overlapping sites of female genital organs (principal)

== ENCOUNTER → 2020-09-16 | Outpatient (CLI) | payer MEDICARE, OTHER ==
[2020-09-16 13:07] LABS: ALBUMIN 3.9 g/dL (3.4-4.8); POTASSIUM 3.9 mmol/L (3.5-5.1)
[2020-09-16 13:09] LABS: CALCIUM 8.9 mg/dL (8.3-10.5)
[2020-09-16 13:10] LABS: TOTAL PROTEIN 7.3 g/dL (6.2-8.1)
[2020-09-16 13:12] LABS: TOTAL BILIRUBIN 0.6 mg/dL (0.2-1.2)
[2020-09-16 13:50] LABS: EOS # 0.1 (0.04-0.40); EOS % 1.3 % (1.0-5.0); HEMATOCRIT 47.2 % (37.0-47.0); LYMPH# 1.1 (1.50-4.00); MEAN CELL VOLUME 96 fl (78-100); MEAN CORPUSCULAR HEMOGLOBIN 30 pg (27-31); MEAN CORPUSCULAR HGB CONC 32 g/dL (33-37); MEAN PLATELET VOLUME 11.9 fl (7.4-10.4); MONO # 0.9 (0.20-0.80); NEU # 6.9 (1.40-6.50); PLATELET COUNT 205 K/mm3 (130-400); RED BLOOD COUNT 4.94 M/mm3 (4.10-5.30); RED CELL DISTRIBUTION WIDTH 13.9 % (11.5-14.5); WHITE BLOOD COUNT 9.2 K/mm3 (4.8-10.8)
== END ==
LOC: LAB 08:20 → RAD 08:20
PROVIDERS: Internal Medicine Medical Oncology
DX: Z13.29 Encounter for screening for other suspected endocrine disorder (principal); C56.9 Malignant neoplasm of unspecified ovary; I71.2 Thoracic aortic aneurysm, without rupture; J43.9 Emphysema, unspecified
CPT/HCPCS: Q9967

== ENCOUNTER → 2020-10-05 | Outpatient (CLI) | payer MEDICARE, OTHER ==
[2020-10-05 13:56] LABS: HEMATOCRIT 46.5 % (37.0-47.0); HEMOGLOBIN 14.6 g/dL (12.5-16.0); MEAN CELL VOLUME 96 fl (78-100); MEAN CORPUSCULAR HEMOGLOBIN 30 pg (27-31); MEAN CORPUSCULAR HGB CONC 31 g/dL (33-37); MEAN PLATELET VOLUME 10.8 fl (7.4-10.4); PLATELET COUNT 217 K/mm3 (130-400); RED BLOOD COUNT 4.84 M/mm3 (4.10-5.30); RED CELL DISTRIBUTION WIDTH 13.8 % (11.5-14.5)
[2020-10-05 14:08] LABS: ALBUMIN 3.9 g/dL (3.4-4.8); POTASSIUM 4.1 mmol/L (3.5-5.1)
[2020-10-05 14:10] LABS: CALCIUM 9.2 mg/dL (8.3-10.5)
[2020-10-05 14:11] LABS: TOTAL PROTEIN 7.3 g/dL (6.2-8.1)
[2020-10-05 14:13] LABS: TOTAL BILIRUBIN 0.5 mg/dL (0.2-1.2)
[2020-10-05 14:18] LABS: PH-URINE 5.5 (5.0 - 8.0); URINE APPEARANCE CLOUDY; URINE COLOR YELLOW
[2020-10-05 14:19] LABS: URINE BILIRUBIN NEGATIVE (NEGATIVE); URINE BLOOD TRACE (NEGATIVE); URINE GLUCOSE NEGATIVE (NEGATIVE); URINE KETONE NEGATIVE (NEGATIVE); URINE LEUKOCYTE ESTERASE TRACE (NEGATIVE); URINE MUCUS PRESENT (NOT PRESENT); URINE NITRATE NEGATIVE (NEGATIVE); URINE PROTEIN(semi-quant) 1+ mg/dL (NEGATIVE); URINE UROBILINOGEN NORMAL (NORMAL)
[2020-10-05 14:22] LABS: LYMPHOCYTE 36 % (20-51); MONOCYTE 6 % (3-10); NEUTROPHILS 56 % (42-75)
== END ==
LOC: LAB 13:43
PROVIDERS: Internal Medicine Medical Oncology
DX: C57.8 Malignant neoplasm of overlapping sites of female genital organs (principal)

== ENCOUNTER → 2020-10-28 | Outpatient (CLI) | payer MEDICARE, OTHER ==
[2020-10-28 11:01] LABS: ALBUMIN 3.9 g/dL (3.4-4.8); POTASSIUM 4.1 mmol/L (3.5-5.1)
[2020-10-28 11:02] LABS: CALCIUM 8.9 mg/dL (8.3-10.5)
[2020-10-28 11:03] LABS: TOTAL PROTEIN 7.4 g/dL (6.2-8.1)
[2020-10-28 11:05] LABS: EOS # 0.2 (0.04-0.40); EOS % 3.3 % (1.0-5.0); HEMATOCRIT 47.6 % (37.0-47.0); HEMOGLOBIN 15.2 g/dL (12.5-16.0); LYMPH# 1.7 (1.50-4.00); MEAN CELL VOLUME 95 fl (78-100); MEAN CORPUSCULAR HEMOGLOBIN 30 pg (27-31); MEAN CORPUSCULAR HGB CONC 32 g/dL (33-37); MEAN PLATELET VOLUME 10.9 fl (7.4-10.4); MONO # 0.7 (0.20-0.80); NEU # 3.1 (1.40-6.50); PLATELET COUNT 228 K/mm3 (130-400); RED BLOOD COUNT 5.01 M/mm3 (4.10-5.30); RED CELL DISTRIBUTION WIDTH 13.4 % (11.5-14.5); TOTAL BILIRUBIN 0.7 mg/dL (0.2-1.2); WHITE BLOOD COUNT 5.8 K/mm3 (4.8-10.8)
[2020-10-28 11:13] LABS: URINE APPEARANCE CLEAR; URINE COLOR YELLOW
[2020-10-28 11:14] LABS: URINE BILIRUBIN NEGATIVE (NEGATIVE); URINE BLOOD NEGATIVE (NEGATIVE); URINE GLUCOSE NEGATIVE (NEGATIVE); URINE KETONE NEGATIVE (NEGATIVE); URINE LEUKOCYTE ESTERASE TRACE (NEGATIVE); URINE MUCUS PRESENT (NOT PRESENT); URINE NITRATE NEGATIVE (NEGATIVE); URINE PROTEIN(semi-quant) TRACE mg/dL (NEGATIVE); URINE UROBILINOGEN NORMAL (NORMAL)
== END ==
LOC: LAB 10:22
PROVIDERS: Internal Medicine Medical Oncology
DX: C57.8 Malignant neoplasm of overlapping sites of female genital organs (principal)

== ENCOUNTER → 2020-11-17 | Outpatient (CLI) | payer MEDICARE, OTHER ==
[2020-11-17 10:07] LABS: BASO # 0.07 (0.02-0.10); EOS # 0.17 (0.04-0.40); EOS % 2.9 % (1.0-5.0); HEMATOCRIT 48.5 % (37.0-47.0); HEMOGLOBIN 15.1 g/dL (12.5-16.0); MEAN CELL VOLUME 97 fl (78-100); MEAN CORPUSCULAR HEMOGLOBIN 30 pg (27-31); MEAN CORPUSCULAR HGB CONC 31 g/dL (33-37); MEAN PLATELET VOLUME 11.1 fl (7.4-10.4); MONO # 0.65 (0.20-0.80); NEU # 3.16 (1.40-6.50); PLATELET COUNT 232 K/mm3 (130-400); RED BLOOD COUNT 5.01 M/mm3 (4.10-5.30); RED CELL DISTRIBUTION WIDTH 13.2 % (11.5-14.5)
[2020-11-17 10:10] LABS: CALCIUM 8.7 mg/dL (8.3-10.5)
[2020-11-17 10:11] LABS: TOTAL PROTEIN 7.4 g/dL (6.2-8.1)
[2020-11-17 10:13] LABS: TOTAL BILIRUBIN 0.5 mg/dL (0.2-1.2)
[2020-11-17 10:31] LABS: URINE APPEARANCE CLEAR; URINE BILIRUBIN NEGATIVE (NEGATIVE); URINE BLOOD NEGATIVE (NEGATIVE); URINE COLOR YELLOW; URINE GLUCOSE NEGATIVE (NEGATIVE); URINE KETONE NEGATIVE (NEGATIVE); URINE LEUKOCYTE ESTERASE TRACE (NEGATIVE); URINE NITRATE NEGATIVE (NEGATIVE); URINE PROTEIN(semi-quant) TRACE mg/dL (NEGATIVE); URINE UROBILINOGEN NORMAL (NORMAL)
== END ==
LOC: LAB 09:47
PROVIDERS: Internal Medicine Medical Oncology
DX: C57.8 Malignant neoplasm of overlapping sites of female genital organs (principal)

== ENCOUNTER → 2020-12-08 | Outpatient (CLI) | payer MEDICARE, OTHER ==
[2020-12-08 13:54] LABS: BASO # 0.07 (0.02-0.10); EOS # 0.17 (0.04-0.40); EOS % 2.5 % (1.0-5.0); HEMATOCRIT 47.1 % (37.0-47.0); HEMOGLOBIN 15.3 g/dL (12.5-16.0); LYMPH# 1.83 (1.50-4.00); MEAN CELL VOLUME 94 fl (78-100); MEAN CORPUSCULAR HEMOGLOBIN 31 pg (27-31); MEAN CORPUSCULAR HGB CONC 33 g/dL (33-37); MEAN PLATELET VOLUME 10.8 fl (7.4-10.4); MONO # 0.89 (0.20-0.80); NEU # 3.73 (1.40-6.50); PLATELET COUNT 235 K/mm3 (130-400); RED BLOOD COUNT 5.02 M/mm3 (4.10-5.30); RED CELL DISTRIBUTION WIDTH 13.3 % (11.5-14.5); WHITE BLOOD COUNT 6.7 K/mm3 (4.8-10.8)
[2020-12-08 14:10] LABS: ALBUMIN 3.9 g/dL (3.4-4.8)
[2020-12-08 14:11] LABS: POTASSIUM 4.2 mmol/L (3.5-5.1)
[2020-12-08 14:12] LABS: CALCIUM 9.1 mg/dL (8.3-10.5)
[2020-12-08 14:13] LABS: TOTAL PROTEIN 7.2 g/dL (6.2-8.1)
[2020-12-08 14:15] LABS: TOTAL BILIRUBIN 0.4 mg/dL (0.2-1.2)
[2020-12-08 14:56] LABS: URINE APPEARANCE HAZY; URINE BILIRUBIN NEGATIVE (NEGATIVE); URINE BLOOD NEGATIVE (NEGATIVE); URINE COLOR YELLOW; URINE GLUCOSE NEGATIVE (NEGATIVE); URINE KETONE NEGATIVE (NEGATIVE); URINE LEUKOCYTE ESTERASE TRACE (NEGATIVE); URINE MUCUS PRESENT (NOT PRESENT); URINE NITRATE NEGATIVE (NEGATIVE); URINE PROTEIN(semi-quant) NEGATIVE (NEGATIVE); URINE UROBILINOGEN NORMAL (NORMAL); URINE WBC 0-1 /hpf (0-3)
== END ==
LOC: LAB 13:31
PROVIDERS: Internal Medicine Medical Oncology
DX: C57.8 Malignant neoplasm of overlapping sites of female genital organs (principal)

== ENCOUNTER → 2020-12-30 | Outpatient (CLI) | payer MEDICARE, OTHER ==
[2020-12-30 10:25] LABS: BASO # 0.06 (0.02-0.10); EOS # 0.19 (0.04-0.40); EOS % 3.2 % (1.0-5.0); HEMATOCRIT 47.3 % (37.0-47.0); HEMOGLOBIN 15.3 g/dL (12.5-16.0); LYMPH# 1.61 (1.50-4.00); MEAN CELL VOLUME 93 fl (78-100); MEAN CORPUSCULAR HEMOGLOBIN 30 pg (27-31); MEAN CORPUSCULAR HGB CONC 32 g/dL (33-37); MONO # 0.62 (0.20-0.80); NEU # 3.43 (1.40-6.50); PLATELET COUNT 213 K/mm3 (130-400); RED BLOOD COUNT 5.08 M/mm3 (4.10-5.30); RED CELL DISTRIBUTION WIDTH 12.9 % (11.5-14.5); WHITE BLOOD COUNT 5.9 K/mm3 (4.8-10.8)
[2020-12-30 10:46] LABS: ALBUMIN 3.9 g/dL (3.4-4.8)
[2020-12-30 10:47] LABS: CALCIUM 8.6 mg/dL (8.3-10.5)
[2020-12-30 10:48] LABS: TOTAL PROTEIN 7.2 g/dL (6.2-8.1)
[2020-12-30 10:50] LABS: TOTAL BILIRUBIN 0.6 mg/dL (0.2-1.2)
[2020-12-30 10:51] LABS: URINE APPEARANCE CLEAR; URINE BILIRUBIN NEGATIVE (NEGATIVE); URINE BLOOD NEGATIVE (NEGATIVE); URINE COLOR YELLOW; URINE GLUCOSE NEGATIVE (NEGATIVE); URINE KETONE NEGATIVE (NEGATIVE); URINE LEUKOCYTE ESTERASE TRACE (NEGATIVE); URINE MUCUS PRESENT (NOT PRESENT); URINE NITRATE NEGATIVE (NEGATIVE); URINE PROTEIN(semi-quant) TRACE mg/dL (NEGATIVE); URINE UROBILINOGEN NORMAL (NORMAL)
== END ==
LOC: LAB 10:09
PROVIDERS: Internal Medicine Medical Oncology
DX: C57.8 Malignant neoplasm of overlapping sites of female genital organs (principal)

== ENCOUNTER → 2021-01-13 | Outpatient (CLI) | payer MEDICARE, OTHER ==
[2021-01-13 13:53] LABS: BASO # 0.05 (0.02-0.10); EOS # 0.09 (0.04-0.40); EOS % 1.5 % (1.0-5.0); HEMATOCRIT 46.8 % (37.0-47.0); HEMOGLOBIN 15.4 g/dL (12.5-16.0); LYMPH# 1.74 (1.50-4.00); MEAN CELL VOLUME 93 fl (78-100); MEAN CORPUSCULAR HEMOGLOBIN 31 pg (27-31); MEAN CORPUSCULAR HGB CONC 33 g/dL (33-37); MEAN PLATELET VOLUME 11.2 fl (7.4-10.4); MONO # 0.71 (0.20-0.80); NEU # 3.24 (1.40-6.50); PLATELET COUNT 214 K/mm3 (130-400); RED BLOOD COUNT 5.04 M/mm3 (4.10-5.30); RED CELL DISTRIBUTION WIDTH 13.3 % (11.5-14.5); WHITE BLOOD COUNT 5.8 K/mm3 (4.8-10.8)
[2021-01-13 14:11] LABS: ALBUMIN 3.7 g/dL (3.4-4.8); URINE APPEARANCE HAZY; URINE BILIRUBIN NEGATIVE (NEGATIVE); URINE BLOOD NEGATIVE (NEGATIVE); URINE COLOR YELLOW; URINE GLUCOSE NEGATIVE (NEGATIVE); URINE KETONE NEGATIVE (NEGATIVE); URINE LEUKOCYTE ESTERASE 1+ (NEGATIVE); URINE MUCUS PRESENT (NOT PRESENT); URINE NITRATE NEGATIVE (NEGATIVE); URINE PROTEIN(semi-quant) TRACE mg/dL (NEGATIVE); URINE UROBILINOGEN NORMAL (NORMAL)
[2021-01-13 14:12] LABS: CALCIUM 8.8 mg/dL (8.3-10.5)
[2021-01-13 14:13] LABS: TOTAL PROTEIN 7.1 g/dL (6.2-8.1)
[2021-01-13 14:15] LABS: TOTAL BILIRUBIN 0.4 mg/dL (0.2-1.2)
== END ==
LOC: LAB 13:31
PROVIDERS: Internal Medicine Medical Oncology
DX: C57.8 Malignant neoplasm of overlapping sites of female genital organs (principal)

== ENCOUNTER → 2021-02-09 | Outpatient (CLI) | payer MEDICARE, OTHER ==
[2021-02-09 11:30] LABS: URINE APPEARANCE HAZY; URINE BILIRUBIN NEGATIVE (NEGATIVE); URINE BLOOD NEGATIVE (NEGATIVE); URINE COLOR YELLOW; URINE GLUCOSE NEGATIVE (NEGATIVE); URINE KETONE NEGATIVE (NEGATIVE); URINE NITRATE NEGATIVE (NEGATIVE); URINE PROTEIN(semi-quant) NEGATIVE (NEGATIVE); URINE UROBILINOGEN NORMAL (NORMAL)
[2021-02-09 11:31] LABS: URINE LEUKOCYTE ESTERASE 1+ (NEGATIVE); URINE MUCUS PRESENT (NOT PRESENT)
[2021-02-09 15:25] LABS: BASO # 0.05 (0.02-0.10); EOS # 0.13 (0.04-0.40); EOS % 2.7 % (1.0-5.0); HEMATOCRIT 47.1 % (37.0-47.0); LYMPH# 1.29 (1.50-4.00); MEAN CELL VOLUME 95 fl (78-100); MEAN CORPUSCULAR HEMOGLOBIN 30 pg (27-31); MEAN CORPUSCULAR HGB CONC 32 g/dL (33-37); MEAN PLATELET VOLUME 11.4 fl (7.4-10.4); MONO # 0.69 (0.20-0.80); NEU # 2.66 (1.40-6.50); PLATELET COUNT 233 K/mm3 (130-400); RED BLOOD COUNT 4.94 M/mm3 (4.10-5.30); RED CELL DISTRIBUTION WIDTH 13.4 % (11.5-14.5); WHITE BLOOD COUNT 4.8 K/mm3 (4.8-10.8)
[2021-02-09 15:29] LABS: ALBUMIN 3.8 g/dL (3.4-4.8); POTASSIUM 3.9 mmol/L (3.5-5.1)
[2021-02-09 15:30] LABS: CALCIUM 8.9 mg/dL (8.3-10.5)
[2021-02-09 15:31] LABS: TOTAL PROTEIN 7.2 g/dL (6.2-8.1)
[2021-02-09 15:33] LABS: TOTAL BILIRUBIN 0.4 mg/dL (0.2-1.2)
== END ==
LOC: LAB 10:48
PROVIDERS: Internal Medicine
DX: Z01.89 Encounter for other specified special examinations (principal)

== ENCOUNTER → 2021-02-10 | Outpatient (CLI) | payer MEDICARE, OTHER | LOC: RAD 02-09 09:00 → LAB 02-09 10:40 → RAD 09:03 | DX: I71.2 Thoracic aortic aneurysm, without rupture (principal); R06.00 Dyspnea, unspecified; J43.9 Emphysema, unspecified; C57.8 Malignant neoplasm of overlapping sites of female genital organs | CPT/HCPCS: Q9967 ==

== ENCOUNTER → 2021-03-03 | Outpatient (CLI) | payer MEDICARE, OTHER ==
[2021-03-03 10:55] LABS: BASO # 0.04 (0.02-0.10); EOS # 0.13 (0.04-0.40); EOS % 2.4 % (1.0-5.0); HEMATOCRIT 48.2 % (37.0-47.0); HEMOGLOBIN 15.4 g/dL (12.5-16.0); MEAN CELL VOLUME 95 fl (78-100); MEAN CORPUSCULAR HEMOGLOBIN 30 pg (27-31); MEAN CORPUSCULAR HGB CONC 32 g/dL (33-37); MEAN PLATELET VOLUME 11.1 fl (7.4-10.4); MONO # 0.64 (0.20-0.80); NEU # 3.22 (1.40-6.50); PLATELET COUNT 210 K/mm3 (130-400); RED BLOOD COUNT 5.09 M/mm3 (4.10-5.30); RED CELL DISTRIBUTION WIDTH 13.2 % (11.5-14.5); WHITE BLOOD COUNT 5.4 K/mm3 (4.8-10.8)
[2021-03-03 10:59] LABS: ALBUMIN 3.8 g/dL (3.4-4.8); POTASSIUM 4.1 mmol/L (3.5-5.1)
[2021-03-03 11:00] LABS: CALCIUM 9.5 mg/dL (8.3-10.5)
[2021-03-03 11:01] LABS: TOTAL PROTEIN 7.3 g/dL (6.2-8.1)
[2021-03-03 11:03] LABS: TOTAL BILIRUBIN 0.5 mg/dL (0.2-1.2)
[2021-03-03 12:13] LABS: URINE APPEARANCE CLEAR; URINE BILIRUBIN NEGATIVE (NEGATIVE); URINE BLOOD NEGATIVE (NEGATIVE); URINE COLOR YELLOW; URINE GLUCOSE NEGATIVE (NEGATIVE); URINE KETONE NEGATIVE (NEGATIVE); URINE LEUKOCYTE ESTERASE TRACE (NEGATIVE); URINE NITRATE NEGATIVE (NEGATIVE); URINE PROTEIN(semi-quant) NEGATIVE (NEGATIVE); URINE UROBILINOGEN NORMAL (NORMAL)
[2021-03-03 12:14] LABS: URINE MUCUS PRESENT (NOT PRESENT)
== END ==
LOC: LAB 10:26
PROVIDERS: Internal Medicine Medical Oncology
DX: C57.8 Malignant neoplasm of overlapping sites of female genital organs (principal)